=== PATIENT | male | born 1995 | race Caucasian/White ===

== ENCOUNTER 2019-07-08 17:34 | Emergency (ER) | payer BC ==
[2019-07-08 18:25] VITALS: BP 140/74
--- NOTE | 2019-07-08 19:02 | UC ---
Complaint Male HPI - HPI Summary HPI Summary: Mr. Samuel presents symptom-free. He has a new partner and is just concerned about STDs. - History of Current Complaint Chief Complaint: [facility] Stated Complaint: PERSONAL Time Seen by Provider: 07/08/19 18:40 Hx Obtained From: Patient Onset/Duration: Other - No symptoms Pain Intensity: 0 Associated Signs And Symptoms: Positive: Negative - Allergies/Home Medications Allergies/Adverse Reactions: Allergies Allergy/AdvReac Type Severity Reaction Status Date / Time No Known Allergies Allergy Verified 03/19/16 20:11 Home Medications: Home Medications NK [No Home Medications Reported] 07/08/19 [History Confirmed 07/08/19] PMH/Surg Hx/FS Hx/Imm Hx Previously Healthy: Yes - Surgical History Surgical History: None - Family History Known Family History: Positive: None - Social History Alcohol Use: Occasionally Substance Use Type: Marijuana Smoking Status (MU): Current Every Day Smoker Type: Cigarettes Amount Used/How Often: < 1/2 PPD Review of Systems All Other Systems Reviewed And Are Negative: Yes Physical Exam - Summary Physical Exam Summary: Nontoxic in appearance with stable vitals. Appearance: Well-Appearing, No Pain Distress Vital Signs: Initial Vital Signs Temp 99 F 07/08/19 18:19 Pulse 85 07/08/19 18:19 Resp 18 07/08/19 18:19 BP 140/74 07/08/19 18:19 Pulse Ox 99 07/08/19 18:19 Vital Signs Reviewed: Yes Respiratory Exam: Normal Abdominal Exam: Normal Psychological Exam: Normal Skin Exam: Normal Complaint Male Course/Dx - Course Course Of Treatment: We sent some screening tests and will let him know if they're positive. - Differential Dx/Diagnosis Provider Diagnosis: STD exposure Discharge ED - Sign-Out/Discharge Documenting (check all that apply): Patient Departure All imaging exams completed and their final reports reviewed: No Studies - Discharge Plan Condition: Stable Disposition: HOME Referrals: Jeny Dumont MD [Primary Care Provider] - Additional Instructions: Lab results will be available staggered over the next week. We will let you know for sure if any of them are positive. - Billing Disposition and Condition Condition: STABLE Disposition: Home
[2019-07-09 11:46] LABS: HIV 4th Generation Nonreactive (Nonreactive)
[2019-07-11 13:44] LABS: Chlamydia trachomatis NAA Negative (Negative); Neisseria gonorrhoeae (GC) NAA Negative (Negative)
== END 2019-07-08 19:30 | disposition home or self-care (01) ==
LOC: UCEAST 17:34
DX: Z20.2 Contact with and (suspected) exposure to infections with a predominantly sexual mode of transmission (principal); F17.210 Nicotine dependence, cigarettes, uncomplicated
CPT/HCPCS: 36415; 81003; 86780; 87389; 87491; 87591; 99211; G0463